=== PATIENT | female | born 1970 ===

== ENCOUNTER 2020-04-01 09:54 | Emergency (ER) | payer MEDICARE, MEDICAID ==
[2020-04-01 10:36] LABS: EOS # 0.1 (0.04-0.40); EOS % 1.6 % (1.0-5.0); HEMATOCRIT 34.7 % (37.0-47.0); HEMOGLOBIN 10.9 g/dL (12.5-16.0); LYMPH# 2.7 (1.50-4.00); MEAN CELL VOLUME 90 fl (78-100); MEAN CORPUSCULAR HEMOGLOBIN 28 pg (27-31); MEAN CORPUSCULAR HGB CONC 31 g/dL (33-37); MEAN PLATELET VOLUME 9.5 fl (7.4-10.4); MONO # 0.5 (0.20-0.80); NEU # 2.2 (1.40-6.50); PLATELET COUNT 281 K/mm3 (130-400); RED BLOOD COUNT 3.85 M/mm3 (4.10-5.30); RED CELL DISTRIBUTION WIDTH 16.1 % (11.5-14.5); WHITE BLOOD COUNT 5.5 K/mm3 (4.8-10.8)
[2020-04-01 10:48] LABS: POTASSIUM 3.4 mmol/L (3.5-5.1); SODIUM 143 mmol/L (136-145)
[2020-04-01 10:49] LABS: CALCIUM 9.4 mg/dL (8.3-10.5)
[2020-04-01 10:50] LABS: GLUCOSE 95 mg/dL (65-105); TOTAL PROTEIN 7.5 g/dL (6.4-8.3)
[2020-04-01 10:51] LABS: CARBON DIOXIDE 25 mmol/L (22-29)
[2020-04-01 10:52] LABS: TOTAL BILIRUBIN 0.3 mg/dL (0.2-1.2)
[2020-04-01 10:55] LABS: AST-SGOT 11 U/L (5-34)
[2020-04-01 10:57] LABS: ALT/SGPT 10 U/L (0-55); MAGNESIUM 1.51 mg/dL (1.60-2.60)
[2020-04-01 10:59] LABS: ACETAMINOPHEN < 1 ug/mL; ALCOHOL IN-HOUSE < 10 mg/dL (<10)
[2020-04-01] MEDS ORDERED: CABERGOLINE0.5 MG PO ×2 (11:00→11:05)
[2020-04-01] MEDS ORDERED: ATIVAN2 MG PO (11:08)
[2020-04-01] MEDS ORDERED: BENZTROPINE1 MG PO (11:09)
[2020-04-01] MEDS ORDERED: NATURE'S BLE1000 MCG PO (11:10)
[2020-04-01 11:59] LABS: URINE APPEARANCE CLOUDY; URINE BILIRUBIN NEGATIVE (NEGATIVE); URINE BLOOD NEGATIVE (NEGATIVE); URINE COLOR YELLOW; URINE GLUCOSE NEGATIVE (NEGATIVE); URINE KETONE NEGATIVE (NEGATIVE); URINE NITRATE NEGATIVE (NEGATIVE); URINE PROTEIN(semi-quant) 1+ mg/dL (NEGATIVE); URINE UROBILINOGEN NORMAL (NORMAL)
[2020-04-01 12:00] LABS: URINE LEUKOCYTE ESTERASE 1+ (NEGATIVE)
[2020-04-01] MEDS ORDERED: K-TAB10 MEQ PO (12:54)
[2020-04-01] MEDS ORDERED: SLOW-MAG 106 MG1 ECT PO (12:54)
[2020-04-01 13:35] LABS: CLUE CELLS NOT OBSERVED (Not Observd)
[2020-04-01] MEDS ORDERED: HALOPERIDOL10 M1 PO (14:38)
[2020-04-01] MEDS ORDERED: GLUCOPHAGE1000 MG PO (14:38)
[2020-04-01 14:39] VITALS: BP 142/88
[2020-04-01] MEDS ORDERED: FLUPHENAZINE HYD PO (14:39)
[2020-04-01] MEDS ORDERED: TRILEPTAL 300M300 MG PO (14:39)
== END 2020-04-01 14:00 ==
LOC: ED 09:54
PROVIDERS: Nurse Practitioner Family; Nurse Practitioner Primary Care
DX: F25.9 Schizoaffective disorder, unspecified (principal); N39.0 Urinary tract infection, site not specified; E87.6 Hypokalemia; E83.42 Hypomagnesemia; I10 Essential (primary) hypertension; E11.9 Type 2 diabetes mellitus without complications
CPT/HCPCS: Q0111